=== PATIENT | female | born 1990 | race Caucasian/White ===

== ENCOUNTER 2017-09-02 20:32 | Emergency (ER) | payer OTHER ==
[2017-09-02 20:40] VITALS: BP 174/84; PULSE 71; RESP 18; TEMP 97.9; O2SAT 100
--- NOTE | 2017-09-02 21:21 | RADRPT ---
EXAM DATE/TIME: 09/02/2017 20:56 [facility] COMPARISON: No previous studies available for comparison. INDICATIONS : Cephalgia with dizziness. RADIATION DOSE: 38.57 CTDIvol (mGy) MEDICAL HISTORY : Hypertension. SURGICAL HISTORY : None. ENCOUNTER: Initial ACUITY: 1 day PAIN SCALE: 4/10 LOCATION: cranial TECHNIQUE: Multiple contiguous axial images were obtained of the head. Using automated exposure control and adj ustment of the mA and/or kV according to patient size, radiation dose was kept as low as reasonably a chievable to obtain optimal diagnostic quality images. DICOM format image data is available electro nically for review and comparison. FINDINGS: CEREBRUM: The ventricles are normal for age. No evidence of midline shift, mass lesion, hemorrhage or acute in farction. No extra-axial fluid collections are seen. POSTERIOR FOSSA: The cerebellum and brainstem are intact. The 4th ventricle is midline. The cerebellopontine angle i s unremarkable. EXTRACRANIAL: The visualized portion of the orbits is intact. SKULL: The calvaria is intact. No evidence of skull fracture. CONCLUSION: 1. No acute intracranial abnormality. Ishan New MD on September 02, 2017 at 21:18 Board Certified Radiologist. This report was verified electronically.
[2017-09-02] MEDS ORDERED: MECL-62 PO (23:39)
[2017-09-02] MEDS ORDERED: CLON.5 PO (23:39)
[2017-09-02] MEDS ORDERED: CIPR500T2 PO (23:45)
[2017-09-02] MEDS ORDERED: SODIUM CHLORIDE 0.9% FLUSH 10 ML FLUSH IV FLUSH PRN (23:45)
--- NOTE | 2017-09-02 23:52 | PD ---
HPI Chief Complaint: Dizziness Time Seen by Provider: 23:36 Travel History International Travel<30 days: No Contact w/Intl Traveler<30days: No Traveled to known affect area: No History of Present Illness HPI 27-year-old female complains of dizziness, blurred vision and abdominal pain. Patient states that the symptoms started about 6 weeks ago. Patient states that she has sensation of near fainting, dizziness, seeing floaters in front of her eyes. Patient denies any headache. Patient denies any visual change. Patient denies any neck pain. Patient denies any coughing congestion. Patient states that she has diffuse abdominal cramping for the past 6 weeks. Patient planes of low back pain also. Patient denies any nausea vomiting diarrhea. Patient complains of poor appetite. Patient denies any fever chills. Patient denies any dysuria frequency. Patient denies any vaginal discharge or bleeding. Patient was seen by personal physician and thyroid test was normal. Patient was put on amlodipine for elevated blood pressure. Amlodipine was stopped about 10 days ago after patient complained of persistent dizziness. Patient was put on Cipro 2 days ago for possible upper respiratory sinus infection. Patient on the diet and experienced weight loss recently. PFSH Past Medical History Anxiety: Yes Hypertension: Yes Tetanus Vaccination: Unknown Influenza Vaccination: Yes ?: Not LMP: 08/27/17 Ovarian Cysts: Yes (RIGHT OVARIAN CYST DRAINING 08/2015) Social History Alcohol Use: No Tobacco Use: No Substance Use: No Allergies-Medications (Allergen,Severity, Reaction): Coded Allergies: amoxicillin (Verified Allergy, Unknown, 09/02/17) Reported Meds & Prescriptions Reported Meds & Active Scripts Active Reported Ciprofloxacin (Ciprofloxacin HCl) 500 Mg Tab 500 Mg PO BID 7 Days Klonopin (Clonazepam) 0.5 Mg Tab 0.5 Mg PO DAILY Meclizine (Meclizine HCl) 25 Mg Tab 25 Mg PO DIRECTED PRN Review of Systems General / Constitutional: No: Fever Eyes: No: Visual changes HENT: Positive: Lightheadedness, No: Headaches Cardiovascular: No: Chest Pain or Discomfort Respiratory: No: Shortness of Breath Gastrointestinal: Positive: Abdominal Pain Genitourinary: No: Dysuria Musculoskeletal: No: Pain Skin: No Rash Neurologic: No: Weakness Psychiatric: No: Depression Endocrine: No: Polydipsia Hematologic/Lymphatic: No: Easy Bruising Physical Exam Narrative GENERAL: Well-nourished, well-developed patient. SKIN: Focused skin assessment warm/dry. HEAD: Normocephalic. EYES: No scleral icterus. No injection or drainage. Pupils 2 mm equal reactive. NECK: Supple, trachea midline. No JVD or lymphadenopathy. No meningismus CARDIOVASCULAR: Regular rate and rhythm without murmurs, gallops, or rubs. RESPIRATORY: Breath sounds equal bilaterally. No accessory muscle use. GASTROINTESTINAL: Abdomen soft, nondistended. Patient has mild diffuse tenderness over the abdomen. No rebound tenderness. No mass. MUSCULOSKELETAL: No cyanosis, or edema. BACK: Nontender without obvious deformity. No CVA tenderness. Neurologic exam: Patient is awake alert oriented 3. No obvious focal neurological deficit. Data Data Last Documented VS Vital Signs Date Time Temp Pulse Resp B/P (MAP) Pulse Ox O2 Delivery O2 Flow Rate FiO2 09/02/17 20:40 97.9 71 18 174/84 (114) [address] Brain W/O Iv Contrast(Rout) (09/02/17 ) Complete Blood Count With Diff (09/02/17 23:45) Comprehensive Metabolic Panel (09/02/17 23:45) Lipase (09/02/17 23:45) Urinalysis - C+S If Indicated (09/02/17 23:45) Ct Abd/Pel W Iv Contrast(Rout) (09/02/17 23:45) Iv Access Insert/Monitor (09/02/17 23:45) Ecg Monitoring (09/02/17 23:45) Oximetry (09/02/17 23:45) Sodium Chloride 0.9% Flush (Ns Flush) (09/02/17 23:45) Ed Urine Pregnancytest Poc (09/02/17 23:45) Labs Laboratory Tests Test 09/03/17 00:00 09/03/17 00:05 White Blood Count 9.2 TH/MM3 Red Blood Count 4.37 MIL/MM3 Hemoglobin 13.4 GM/DL Hematocrit 38.2 % Mean Corpuscular Volume 87.5 FL Mean Corpuscular Hemoglobin 30.7 PG Mean Corpuscular Hemoglobin Concent 35.1 % Red Cell Distribution Width 12.8 % Platelet Count 288 TH/MM3 Mean Platelet Volume 10.2 FL Neutrophils (%) (Auto) 70.5 % Lymphocytes (%) (Auto) 19.7 % Monocytes (%) (Auto) 2.9 % Eosinophils (%) (Auto) 4.0 % Basophils (%) (Auto) 2.9 % Neutrophils # (Auto) 6.5 TH/MM3 Lymphocytes # (Auto) 1.8 TH/MM3 Monocytes # (Auto) 0.3 TH/MM3 Eosinophils # (Auto) 0.4 TH/MM3 Basophils # (Auto) 0.3 TH/MM3 CBC Comment DIFF FINAL Differential Comment Blood Urea Nitrogen 16 MG/DL Creatinine 0.73 MG/DL Random Glucose 98 MG/DL Total Protein 7.8 GM/DL Albumin 4.2 GM/DL Calcium Level 9.6 MG/DL Alkaline Phosphatase 73 U/L Aspartate Amino Transf (AST/SGOT) 31 U/L Alanine Aminotransferase (ALT/SGPT) 89 U/L Total Bilirubin 0.2 MG/DL Sodium Level 140 MEQ/L Potassium Level 3.7 MEQ/L Chloride Level 104 MEQ/L Carbon Dioxide Level 25.7 MEQ/L Anion Gap 10 MEQ/L Estimat Glomerular Filtration Rate 94 ML/MIN Lipase 135 U/L Urine Color LIGHT-YELLOW Urine Turbidity CLEAR Urine pH 5.5 Urine Specific [place] 1.011 Urine Protein NEG mg/dL Urine Glucose (UA) NEG mg/dL Urine Ketones NEG mg/dL Urine Occult Blood SMALL Urine Nitrite NEG Urine Bilirubin NEG Urine Urobilinogen LESS THAN 2.0 MG/DL Urine Leukocyte Esterase NEG Urine RBC 4 /hpf Urine WBC 1 /hpf Urine Squamous Epithelial Cells 1 /hpf Urine Mucus FEW /lpf Microscopic Urinalysis Comment CULT NOT INDICATED MDM Medical Decision Making Medical Screen Exam Complete: Yes Emergency Medical Condition: Yes Interpretation(s) 1:02 AM. CBC within normal limits. CMP within normal limits. UA is negative. Differential Diagnosis Differential diagnosis including viral syndrome, vertigo, gastritis, PUD, pancreatitis, cholecystitis, colitis, UTI, pyelonephritis nephrolithiasis. Narrative Course 27-year-old female with dizziness and abdominal pain. Junior Hancock MD Sep 02, 2017 23:52
[2017-09-03 00:25] LABS: BILIRUBIN, URINE NEG (NEG); BLOOD, URINE SMALL (NEG); GLUCOSE,URINE NEG (NEG); KETONE, URINE NEG (NEG); MUCUS URINE FEW /lpf (OCC); NITRITE,URINE NEG (NEG); PH, URINE 5.5 (5.0-8.5); SQUAMOUS EPITHELIAL CELL URINE 1 /hpf (0-5); URINE COLOR LIGHT-YELLOW (YELLW/STRAW); URINE LEUKOCYTE ESTERASE NEG (NEG)
[2017-09-03 00:25] LABS: AUTOMATED NEUTROPHIL # 6.5 TH/MM3 (1.8-7.7); BASOPHIL # 0.3 TH/MM3 (0-0.2); BASOPHIL % 2.9 % (0.0-2.0); EOSINOPHIL # 0.4 TH/MM3 (0-0.4); HEMATOCRIT 38.2 % (35.0-46.0); HEMOGLOBIN 13.4 GM/DL (11.6-15.3); LYMPH % 19.7 % (9.0-44.0); LYMPHOCYTE # 1.8 TH/MM3 (1.0-4.8); MEAN CELL VOLUME 87.5 FL (80.0-100.0); MEAN CORPUSCULAR HEMOGLOBIN 30.7 PG (27.0-34.0); MEAN CORPUSCULAR HGB CONC 35.1 % (32.0-36.0); MEAN PLATELET VOLUME 10.2 FL (7.0-11.0); MONO % 2.9 % (0.0-8.0); MONOCYTE # 0.3 TH/MM3 (0-0.9); NEUT % 70.5 % (16.0-70.0); PLATELET COUNT 288 TH/MM3 (150-450); RED BLOOD COUNT 4.37 MIL/MM3 (4.00-5.30); RED CELL DISTRIBUTION WIDTH 12.8 % (11.6-17.2); WHITE BLOOD COUNT 9.2 TH/MM3 (4.0-11.0)
[2017-09-03 00:43] LABS: ALBUMIN 4.2 GM/DL (3.4-5.0); AST (GOT) 31 U/L (15-37); BICARBONATE 25.7 MEQ/L (21.0-32.0); BLOOD UREA NITROGEN 16 MG/DL (7-18); CALCIUM 9.6 MG/DL (8.5-10.1); CHLORIDE 104 MEQ/L (98-107); CREATININE 0.73 MG/DL (0.50-1.00); GLOMERULAR FILTRATION RATE 94 ML/MIN (>89); GLUCOSE,RANDOM 98 MG/DL (74-106); SODIUM (NA) 140 MEQ/L (136-145)
[2017-09-03 00:45] LABS: ALT (GPT) 89 U/L (10-53)
[2017-09-03 00:47] LABS: ALKALINE PHOSPHATASE 73 U/L (45-117); TOTAL BILIRUBIN ADULT 0.2 MG/DL (0.2-1.0); TOTAL PROTEIN 7.8 GM/DL (6.4-8.2)
[2017-09-03] MEDS ORDERED: IOHEXOL 350 MG/ML 10 ML VIAL (for RAD DIAG) IVCONTRAST ONE (01:29)
--- NOTE | 2017-09-03 01:36 | RADRPT ---
EXAM DATE/TIME: 09/03/2017 01:16 [facility] COMPARISON: No previous studies available for comparison. INDICATIONS : Diffuse abdominal pain. IV CONTRAST: 100 cc Omnipaque 350 (iohexol) IV ORAL CONTRAST: No oral contrast ingested. RADIATION DOSE: 16.62 CTDIvol (mGy) MEDICAL HISTORY : Hypertension. Ovarian cysts. SURGICAL HISTORY : None. ENCOUNTER: Initial ACUITY: 1 month PAIN SCALE: 8/10 LOCATION: Abdomen. TECHNIQUE: Volumetric scanning of the abdomen and pelvis was performed. Using automated exposure control and ad justment of the mA and/or kV according to patient size, radiation dose was kept as low as reasonably achievable to obtain optimal diagnostic quality images. DICOM format image data is available electro nically for review and comparison. FINDINGS: LOWER LUNGS: The visualized lower lungs are clear. LIVER: Homogeneous density without lesion. There is no dilation of the biliary tree. No calcified gallston es. SPLEEN: Normal size without lesion. PANCREAS: Within normal limits. KIDNEYS: Normal in size and shape. There is no mass, stone or hydronephrosis. ADRENAL GLANDS: Within normal limits. VASCULAR: There is no aortic aneurysm. BOWEL/MESENTERY: The stomach, small bowel, and colon demonstrate no acute abnormality. Mild amount of stool throughou t right colon. There is no free intraperitoneal air or fluid. ABDOMINAL WALL: Within normal limits. RETROPERITONEUM: There is no lymphadenopathy. BLADDER: No wall thickening or mass. REPRODUCTIVE: Within normal limits. INGUINAL: There is no lymphadenopathy or hernia. MUSCULOSKELETAL: Within normal limits for patient age. CONCLUSION: 1. Negative CT abdomen/pelvis with contrast. Mathew Barcenas MD on September 03, 2017 at 1:33 Board Certified Radiologist. This report was verified electronically.
--- NOTE | 2017-09-03 02:12 | PD ---
Physical Exam Date Seen by Provider: Sep 03, 2017 Time Seen by Provider: 02:09 Data Data Last Documented VS Vital Signs Date Time Temp Pulse Resp B/P (MAP) Pulse Ox O2 Delivery O2 Flow Rate FiO2 09/02/17 20:40 97.9 71 18 174/84 (114) [address] Brain W/O Iv Contrast(Rout) (09/02/17 ) Complete Blood Count With Diff (09/02/17 23:45) Comprehensive Metabolic Panel (09/02/17 23:45) Lipase (09/02/17 23:45) Urinalysis - C+S If Indicated (09/02/17 23:45) Ct Abd/Pel W Iv Contrast(Rout) (09/02/17 23:45) Iv Access Insert/Monitor (09/02/17 23:45) Ecg Monitoring (09/02/17 23:45) Oximetry (09/02/17 23:45) Sodium Chloride 0.9% Flush (Ns Flush) (09/02/17 23:45) Ed Urine Pregnancytest Poc (09/02/17 23:45) Iohexol 350 Inj (Omnipaque 350 Inj) (09/03/17 01:29) Labs Laboratory Tests Test 09/03/17 00:00 09/03/17 00:05 White Blood Count 9.2 TH/MM3 Red Blood Count 4.37 MIL/MM3 Hemoglobin 13.4 GM/DL Hematocrit 38.2 % Mean Corpuscular Volume 87.5 FL Mean Corpuscular Hemoglobin 30.7 PG Mean Corpuscular Hemoglobin Concent 35.1 % Red Cell Distribution Width 12.8 % Platelet Count 288 TH/MM3 Mean Platelet Volume 10.2 FL Neutrophils (%) (Auto) 70.5 % Lymphocytes (%) (Auto) 19.7 % Monocytes (%) (Auto) 2.9 % Eosinophils (%) (Auto) 4.0 % Basophils (%) (Auto) 2.9 % Neutrophils # (Auto) 6.5 TH/MM3 Lymphocytes # (Auto) 1.8 TH/MM3 Monocytes # (Auto) 0.3 TH/MM3 Eosinophils # (Auto) 0.4 TH/MM3 Basophils # (Auto) 0.3 TH/MM3 CBC Comment DIFF FINAL Differential Comment Blood Urea Nitrogen 16 MG/DL Creatinine 0.73 MG/DL Random Glucose 98 MG/DL Total Protein 7.8 GM/DL Albumin 4.2 GM/DL Calcium Level 9.6 MG/DL Alkaline Phosphatase 73 U/L Aspartate Amino Transf (AST/SGOT) 31 U/L Alanine Aminotransferase (ALT/SGPT) 89 U/L Total Bilirubin 0.2 MG/DL Sodium Level 140 MEQ/L Potassium Level 3.7 MEQ/L Chloride Level 104 MEQ/L Carbon Dioxide Level 25.7 MEQ/L Anion Gap 10 MEQ/L Estimat Glomerular Filtration Rate 94 ML/MIN Lipase 135 U/L Urine Color LIGHT-YELLOW Urine Turbidity CLEAR Urine pH 5.5 Urine Specific [place] 1.011 Urine Protein NEG mg/dL Urine Glucose (UA) NEG mg/dL Urine Ketones NEG mg/dL Urine Occult Blood SMALL Urine Nitrite NEG Urine Bilirubin NEG Urine Urobilinogen LESS THAN 2.0 MG/DL Urine Leukocyte Esterase NEG Urine RBC 4 /hpf Urine WBC 1 /hpf Urine Squamous Epithelial Cells 1 /hpf Urine Mucus FEW /lpf Microscopic Urinalysis Comment CULT NOT INDICATED MDM Medical Record Reviewed: Yes Supervised Visit with ALICE: Yes Interpretation(s) Laboratory Tests Test 09/03/17 00:00 09/03/17 00:05 White Blood Count 9.2 TH/MM3 Red Blood Count 4.37 MIL/MM3 Hemoglobin 13.4 GM/DL Hematocrit 38.2 % Mean Corpuscular Volume 87.5 FL Mean Corpuscular Hemoglobin 30.7 PG Mean Corpuscular Hemoglobin Concent 35.1 % Red Cell Distribution Width 12.8 % Platelet Count 288 TH/MM3 Mean Platelet Volume 10.2 FL Neutrophils (%) (Auto) 70.5 % Lymphocytes (%) (Auto) 19.7 % Monocytes (%) (Auto) 2.9 % Eosinophils (%) (Auto) 4.0 % Basophils (%) (Auto) 2.9 % Neutrophils # (Auto) 6.5 TH/MM3 Lymphocytes # (Auto) 1.8 TH/MM3 Monocytes # (Auto) 0.3 TH/MM3 Eosinophils # (Auto) 0.4 TH/MM3 Basophils # (Auto) 0.3 TH/MM3 CBC Comment DIFF FINAL Differential Comment Blood Urea Nitrogen 16 MG/DL Creatinine 0.73 MG/DL Random Glucose 98 MG/DL Total Protein 7.8 GM/DL Albumin 4.2 GM/DL Calcium Level 9.6 MG/DL Alkaline Phosphatase 73 U/L Aspartate Amino Transf (AST/SGOT) 31 U/L Alanine Aminotransferase (ALT/SGPT) 89 U/L Total Bilirubin 0.2 MG/DL Sodium Level 140 MEQ/L Potassium Level 3.7 MEQ/L Chloride Level 104 MEQ/L Carbon Dioxide Level 25.7 MEQ/L Anion Gap 10 MEQ/L Estimat Glomerular Filtration Rate 94 ML/MIN Lipase 135 U/L Urine Color LIGHT-YELLOW Urine Turbidity CLEAR Urine pH 5.5 Urine Specific [place] 1.011 Urine Protein NEG mg/dL Urine Glucose (UA) NEG mg/dL Urine Ketones NEG mg/dL Urine Occult Blood SMALL Urine Nitrite NEG Urine Bilirubin NEG Urine Urobilinogen LESS THAN 2.0 MG/DL Urine Leukocyte Esterase NEG Urine RBC 4 /hpf Urine WBC 1 /hpf Urine Squamous Epithelial Cells 1 /hpf Urine Mucus FEW /lpf Microscopic Urinalysis Comment CULT NOT INDICATED Last 24 hours Impressions Abdomen/Pelvis CT 09/02/17 2345 Signed Impressions: Service Date/Time: August 01:16 - CONCLUSION: 1. Negative CT abdomen/pelvis with contrast. Mathew Barcenas MD Head CT 09/02/17 0000 Signed Impressions: Service Date/Time: Saturday, September 02, 2017 20:56 - CONCLUSION: 1. No acute intracranial abnormality. Ishan New MD Differential Diagnosis . Narrative Course The patient's CAT scan of the head and abdomen are negative. The patient has no evidence of sinus disease or intra-abdominal process. I have discussed the case with Dr. Hancock who feels that this is most likely dizziness and headache associated with viral syndrome and hypertension. Patient's antibiotic s should be discontinued. I will write a prescription for lisinopril 5 mg daily. she can be treated symptomatically. This is #1 cephalgia, #2 viral syndrome, #3 hypertension Diagnosis Primary Impression: Cephalgia Additional Impressions: Viral syndrome Hypertension Patient Instructions: General Instructions Additional Instruction: Rest. Increase fluids. Stop Cipro. Antihistamine for dizziness. Lisinopril for blood pressure. Follow-up with her primary care doctor next 3-5 days. Return to the ER for emergencies. Med/Other Pt SpecificInfo: Prescription(s) given Disposition: DISCHARGE HOME Condition: Stable Ishan Holland Sep 03, 2017 02:12
[2017-09-03] MEDS ORDERED: LISI-519 PO (02:14)
[2017-09-03] MEDS ORDERED: MECL-62 PO (02:14)
== END 2017-09-03 02:37 | disposition home or self-care (01) ==
LOC: NED 20:32 → NEPD 09-03 02:37
DX: R51 Headache (principal); B34.9 Viral infection, unspecified; R42 Dizziness and giddiness; I10 Essential (primary) hypertension
CPT/HCPCS: 70450; 74177; 80053; 81001; 83690; 84703; 85025; 99284; Q9967

== ENCOUNTER 2017-09-07 03:36 | Emergency (ER) | payer OTHER ==
[~2017-09-07 03:36] MED LIST: CIPR500T2 PO; CLON.5 PO; LISI-519 PO; MECL-62 PO
[2017-09-07 03:54] VITALS: BP 134/61; PULSE 67; RESP 16; TEMP 98.6; O2SAT 96
--- NOTE | 2017-09-07 04:19 | PD ---
HPI Chief Complaint: Psychiatric Symptoms Time Seen by Provider: 03:55 Travel History International Travel<30 days: No Contact w/Intl Traveler<30days: No Traveled to known affect area: No History of Present Illness HPI 27-year-old white female presents to emergency department as a transfer from [facility]. She had been medically cleared by the ER doctor and sent to the ER here at [facility] to be seen by the psychiatrist under her Calloway act. The patient had made statements to the ER physician that she is feeling depressed regarding her medical conditions and that she has contemplated driving her car [place] the bridge. The patient here states that she is really not suicidal. She is just tired of feeling sick. She went to the ER because she had a syncopal event. The patient is been sick now for nearly 2 months. She's had intermittent dizziness, palpitations, headaches and general malaise. She has been seen by her primary care doctor on multiple occasions. She's been here at [facility] as well. She's been seen by jogger operator and is allegedly being referred to neurology. The patient states that she is not truly suicidal or homicidal. She is just upset with her medical condition. She denies any toxic ingestions. No drugs. PFSH Past Medical History Anxiety: Yes Hypertension: Yes Tetanus Vaccination: < 5 Years ?: Not : 2 Para: 2 Ovarian Cysts: Yes (RIGHT OVARIAN CYST DRAINING 08/2015) Past Surgical History Surgical History: No Previous Surgery Social History Alcohol Use: No Tobacco Use: No Substance Use: No Allergies-Medications (Allergen,Severity, Reaction): Coded Allergies: amoxicillin (Verified Allergy, Unknown, 09/02/17) Reported Meds & Prescriptions Reported Meds & Active Scripts Active Meclizine (Meclizine HCl) 25 Mg Tab 25 Mg PO Q6HR PRN 7 Days Reported Klonopin (Clonazepam) 0.5 Mg Tab 0.5 Mg PO DAILY Review of Systems Except as stated in HPI: all other systems reviewed are Neg General / Constitutional: No: Fever, Chills Eyes: No: Blurred Vision, Pain HENT: Positive: Headaches, No: Neck Pain Cardiovascular: Positive: Palpitations, Irregular Rhythm, Tachycardia, No: Chest Pain or Discomfort Respiratory: Positive: Shortness of Breath, No: Cough, Wheezing Gastrointestinal: No: Nausea, Vomiting Genitourinary: No: Frequency, Dysuria Psychiatric: Positive: Depression, Mood Disorder, No: Anxiety, Suicidal Ideations, Disorder of Thought, Substance Abuse, Homicidal Ideation Physical Exam Narrative GENERAL: Well-nourished, well-developed patient. SKIN: Warm and dry. HEAD: Normocephalic and atraumatic. EYES: No scleral icterus. No injection or drainage. ENT: No nasal drainage noted. Mucous membranes pink. Airway patent. NECK: Supple, trachea midline. Moves head freely without obvious discomfort. CARDIOVASCULAR: Regular rate and rhythm without murmurs, gallops, or rubs. RESPIRATORY: Breath sounds equal bilaterally. No accessory muscle use. GASTROINTESTINAL: Abdomen soft, non-tender, nondistended. EXTREMITIES: No cyanosis or edema. BACK: Nontender without obvious deformity. No CVA tenderness. NEURO: Patient is alert and oriented. no sensorimotor deficits. Nonfocal. Normal speech. PSYCH: No delusions. No auditory or visual hallucinations. Data Data Last Documented VS Vital Signs Date Time Temp Pulse Resp B/P (MAP) Pulse Ox O2 Delivery O2 Flow Rate FiO2 09/07/17 03:54 98.6 67 16 134/61 (85) 96 MDM Medical Decision Making Medical Screen Exam Complete: Yes Emergency Medical Condition: Yes Medical Record Reviewed: Yes Interpretation(s) I review the patient's laboratory testing from [facility]. Differential Diagnosis MDM: High Differential diagnoses: Schizophrenia, schizoaffective disorder, bipolar, anxiety, depression, adjustment reaction, mood disorder NOS, ODD, depressive disorder NOS, dementia, dementia with agitation, psychosis NOS, substance induced mood disorder, DMDD, Asperger syndrome, infection,electrolyte abnormality, malingering. Mental health screening discussed with the patient. Psychiatric screen ordered. Narrative Course This is a patient who had been cleared earlier in the evening by the doctor at [facility] This is medical clearance for psychiatric admission Diagnosis Primary Impression: Medical clearance for psychiatric admission Patient Instructions: General Instructions Condition: Stable Ishan Holland Sep 07, 2017 04:19
[2017-09-07 10:48] VITALS: BP 142/77; PULSE 67; RESP 18; TEMP 98.3; O2SAT 100
--- NOTE | 2017-09-07 11:19 | PD ---
Physical Exam Time Seen by Provider: 11:[address] Villagomez has evaluated patient, lifted the Calloway act and cleared the patient for discharge. Data Data Last Documented VS Vital Signs Date Time Temp Pulse Resp B/P (MAP) Pulse Ox O2 Delivery O2 Flow Rate FiO2 09/07/17 10:48 98.3 67 18 142/77 (98) 100 Room Air Orders Orders Psych Screen (09/07/17 04:26) Diet Regular Basic (09/07/17 Breakfast) MDM Supervised Visit with ALICE: No Narrative Course Dr. Villagomez has evaluated patient, lifted the Calloway act and cleared the patient for discharge. Patient contracts safety. Denies suicidal or homicidal ideations. Patient will be provided community resource packet to [facility] for follow-up. Has friends and family for support. Patient was medically cleared by alternate provider prior to psych screening. Patient has been evaluated by psychiatry and and is now cleared for discharge. Diagnosis Primary Impression: Depression Qualified Codes: F32.9 - Major depressive disorder, single episode, unspecified Referrals: [facility] (Out patient) [facility] Primary Care Physician Psychiatrist Julio [facility] Patient Instructions: General Instructions Additional Instruction: Contract safety to your self and others Follow-up with psychiatry Follow-up with primary care provider Follow-up with [facility] Return to the emergency department immediately with worsening of symptoms Med/Other Pt SpecificInfo: No Change to Meds, No Meds Exist/No RX given Disposition: 01 DISCHARGE HOME Condition: Stable Kisha Jennings Sep 07, 2017 11:19
--- NOTE | 2017-09-07 15:07 | PD.PSY.CON ---
Provisional Diagnosis Admission Date [place]. Unspecified anxiety History of Present Illness Service Psychiatry Consult Requested By ER Reason for Consult Anxiety Primary Care Physician Yojana Mclaughlin MD HPI Patient was seen this morning at 10:30 AM The patient is 27-year-old woman, domiciled with her boyfriend in [place], unemployed, mother of 3 kids, without no previous psychiatric history , no prepsychotic hospitalizations, no previous suicide attempts, medical history of migraine hypertension, who presents to emergency department as a transfer from [facility]. She had been medically cleared by the ER doctor and sent to the ER here at [facility] to be seen by the psychiatrist under her Calloway act. The patient had made statements to the ER physician that she is feeling depressed regarding her medical conditions and that she has contemplated driving her car [place] the bridge. The patient here states that she is really not suicidal "I have to many reasons to look for, including my 3 kids and my family". She is just tired of feeling sick. She went to the ER because she had a syncopal event. The patient is been sick now for nearly 2 months. Patient described discrete episode of feeling dizzy, with impending doom, tachycardia, and sweating. She has been seen by her primary care doctor on multiple occasions. She's been here at [facility] as well. She's been seen by district home economics agent and is allegedly being referred to neurology. The patient states that she is not truly suicidal or homicidal. She is just upset with her medical condition. She denies any toxic ingestions. No drugs. Review of Systems Constitutional: DENIES: Diaphoretic episodes, Fatigue, Fever, Weight gain, Weight loss, Chills, Dizziness, Change in appetite, Night Sweats Endocrine: DENIES: Abnorml menstrual pattern, Heat/cold intolerance, Polydipsia , Polyuria, Polyphagia Eyes: DENIES: Blurred vision, Diplopia, Eye inflammation, Eye pain, Vision loss , Photosensitivity, Double Vision Ears, nose, mouth, throat: DENIES: Tinnitus, Hearing loss, Vertigo, Nasal discharge, Oral lesions, Throat pain, Hoarseness, Ear Pain, Running Nose, Epistaxis, Sinus Pain, Toothache, Odynophagia Respiratory: DENIES: Apneas, Cough, Snoring, Wheezing, Hemoptysis, Sputum production, Shortness of breath Cardiovascular: DENIES: Chest pain, Palpitations, Syncope, Dyspnea on Exertion , PND, Lower Extremity Edema, Orthopnea, Claudication Gastrointestinal: DENIES: Abdominal pain, Black stools, Bloody stools, Constipation, Diarrhea, Nausea, Vomiting, Difficulty Swallowing, Anorexia Genitourinary: DENIES: Abnormal vaginal bleeding, Dysmenorrhea, Dyspareunia, Sexual dysfunction, Urinary frequency, Urinary incontinence, Urgency, Hematuria , Dysuria, Nocturia, Vaginal discharge Musculoskeletal: DENIES: Joint pain, Muscle aches, Stiffness, Joint Swelling, Back pain, Neck pain Integumentary: DENIES: Abnormal pigmentation, Pruritus, Rash, Nail changes, Breast masses, Breast skin changes, Nipple discharge Hematologic/lymphatic: DENIES: Bruising, Lymphadenopathy Immunologic/allergic: DENIES: Eczema, Urticaria Neurologic: DENIES: Abnormal gait, Headache, Localized weakness, Paresthesias, Seizures, Speech Problems, Tremor, Poor Balance Psychiatric: COMPLAINS OF: Anxiety, DENIES: Confusion, Mood changes, Depression , Hallucinations, Agitation, Suicidal Ideation, Homicidal Ideation, Delusions Past Family Social History Coded Allergies: amoxicillin (Verified Allergy, Unknown, 09/02/17) Active Scripts Meclizine (Meclizine) 25 Mg Tab, 25 MG PO Q6HR Y for VERTIGO for 7 Days, TAB 0 Refills Prov:Junior Hancock MD 09/03/17 Reported Medications Clonazepam (Klonopin) 0.5 Mg Tab, 0.5 MG PO DAILY, #60 TAB 0 Refills 09/02/17 Discontinued Reported Medications Ciprofloxacin (Ciprofloxacin) 500 Mg Tab, 500 MG PO BID for Infection for 7 Days , #14 TAB 0 Refills 09/02/17 Discontinued Scripts Lisinopril (Lisinopril) 5 Mg Tab, 5 MG PO DAILY for Blood Pressure Management, # 30 TAB 0 Refills Prov:Junior Hancock MD 09/03/17 Family Psych History No family psychiatric history Social History Patient was born raised in [facility], she lives in [place] with her , unemployed, she has 3 kids, her highest level of education is some college Patient's Strengths (min. 2) Family support Physical Exam Vital Signs Vital Signs Date Time Temp Pulse Resp B/P (MAP) Pulse Ox O2 Delivery O2 Flow Rate FiO2 09/07/17 11:56 09/07/17 10:48 98.3 67 18 100 Room Air I/O 09/07/17 09/07/17 09/08/17 08:00 16:00 00:00 Intake Total 480 ml Balance 480 ml Mental Status Examination Appearance: Appropriate Consciousness: Alert Orientation: x4 Motor Activity: Normal gait Speech: Unremarkable Language: Adequate Fund of Knowledge: Adequate Attention and Concentration: Adequate Memory: Unremarkable Mood: Appropriate Affect: Appropriate Thought Process & Associations: Intact Thought Content: Appropriate Hallucination Type: None Delusion Type: None Suicidal Ideation: No Suicidal Plan: No Suicidal Intention: No Homicidal Ideation: No Homicidal Plan: No Homicidal Intention: No Insight: Adequate Judgment: Adequate Assessment & Plan Problem List: (1) Anxiety disorder, unspecified ICD Codes: F41.9 - Anxiety disorder, unspecified Assessment & Plan: On psychiatric evaluation today the patient does not present evidence of depression, erin and psychosis. The patient denies suicidal or homicidal ideation, she denies visual and auditory hallucinations. The patient does report that she has been having episodic anxiety, sensation of fainting, palpitation and sweating and also impending doom. She has been presented with symptoms for about 2 months. He has had multiple medical test and they are all negative. Patient could be having panic attacks. She already has an appointment with a psychiatrist next week. She does not meet criteria for involuntary psychiatric admission at this moment. Calloway act will be lifted Assessment & Plan Estimated LOS: Kimo Cotton MD Sep 07, 2017 15:07
== END 2017-09-07 12:03 | disposition home or self-care (01) ==
LOC: NEPD 03:36
DX: F32.9 Major depressive disorder, single episode, unspecified (principal)
CPT/HCPCS: 99284

== ENCOUNTER 2017-09-14 10:12 | Emergency (ER) | payer OTHER ==
[~2017-09-14] VITALS: Ht 162.6 cm; Wt 122.0 kg
[~2017-09-14 10:12] MED LIST changes: -CIPR500T2 PO; -LISI-519 PO
[2017-09-14 10:16] VITALS: BP 135/66; PULSE 76; RESP 16; TEMP 99; O2SAT 98
--- NOTE | 2017-09-14 11:24 | PD ---
HPI Chief Complaint: GI Complaint Time Seen by Provider: 11:19 Travel History International Travel<30 days: No Contact w/Intl Traveler<30days: No Traveled to known affect area: No History of Present Illness HPI 27-year-old female patient presents to the ER today because she states that she has had several months history of not feeling right, intermittent abdominal pain , intermittent syncopal episodes, recent episodes of diarrhea, pain around her tailbone area, for which she has been following up with primary care physician. She has recently received MRI scans of her abdomen and is supposed to see neurology next week. She states that in the last 2 days she has had mucousy stools and had some red streaks today. She called primary care and told to come to the ER for evaluation. Modifying Factors: None Associated Signs & Symptoms: Intermittent abdominal pain, syncopal episodes, diarrhea, red streaks in the stool today, mucus in the stool Risk Factors: None PFSH Past Medical History Anxiety: Yes Hypertension: Yes (no meds) Influenza Vaccination: No ?: Not LMP: 09/01/17 : 2 Para: 2 Ovarian Cysts: Yes (RIGHT OVARIAN CYST DRAINING 08/2015) Social History Alcohol Use: No Tobacco Use: No Substance Use: No Allergies-Medications (Allergen,Severity, Reaction): Coded Allergies: amoxicillin (Verified Allergy, Unknown, 09/14/17) Reported Meds & Prescriptions Reported Meds & Active Scripts Active Reported Klonopin (Clonazepam) 0.5 Mg Tab 0.5 Mg PO DAILY Review of Systems Except as stated in HPI: all other systems reviewed are Neg Physical Exam Narrative GENERAL: Well-developed young female patient currently not in acute distress. Awake and oriented 3. SKIN: Focused skin assessment warm/dry. HEAD: Atraumatic. Normocephalic. EYES: Pupils equal and round. No scleral icterus. No injection or drainage. ENT: No nasal bleeding or discharge. Mucous membranes pink and moist. NECK: Trachea midline. No JVD. Supple. CARDIOVASCULAR: Regular rate and rhythm. No murmur appreciated. RESPIRATORY: No accessory muscle use. Clear to auscultation. Breath sounds equal bilaterally. GASTROINTESTINAL: Abdomen soft, non-tender, nondistended. Hepatic and splenic margins not palpable. MUSCULOSKELETAL: No obvious deformities. No clubbing. No cyanosis. No edema. RECTAL EXAM: No masses or tenderness, stool is brown. Hemoccult negative. NEUROLOGICAL: Awake and alert. No obvious cranial nerve deficits. Motor grossly within normal limits. Normal speech. PSYCHIATRIC: Appropriate mood and affect; insight and judgment normal. Data Data Last Documented VS Vital Signs Date Time Temp Pulse Resp B/P (MAP) Pulse Ox O2 Delivery O2 Flow Rate FiO2 09/14/17 11:36 98 Room Air 09/14/17 10:16 99.0 76 16 135/66 (89) Orders Orders Complete Blood Count With Diff (09/14/17 11:21) Comprehensive Metabolic Panel (09/14/17 11:21) Lipase (09/14/17 11:21) Urinalysis - C+S If Indicated (09/14/17 11:21) Iv Access Insert/Monitor (09/14/17 11:21) Ecg Monitoring (09/14/17 11:21) Oximetry (09/14/17 11:21) Sodium Chloride 0.9% Flush (Ns Flush) (09/14/17 11:30) Ed Urine Pregnancytest Poc (09/14/17 11:21) Labs Laboratory Tests Test 09/14/17 11:30 White Blood Count 9.5 TH/MM3 Red Blood Count 4.52 MIL/MM3 Hemoglobin 13.5 GM/DL Hematocrit 39.9 % Mean Corpuscular Volume 88.3 FL Mean Corpuscular Hemoglobin 29.8 PG Mean Corpuscular Hemoglobin Concent 33.8 % Red Cell Distribution Width 12.1 % Platelet Count 266 TH/MM3 Mean Platelet Volume 9.7 FL Neutrophils (%) (Auto) 81.8 % Lymphocytes (%) (Auto) 11.6 % Monocytes (%) (Auto) 3.4 % Eosinophils (%) (Auto) 2.7 % Basophils (%) (Auto) 0.5 % Neutrophils # (Auto) 7.8 TH/MM3 Lymphocytes # (Auto) 1.1 TH/MM3 Monocytes # (Auto) 0.3 TH/MM3 Eosinophils # (Auto) 0.3 TH/MM3 Basophils # (Auto) 0.0 TH/MM3 CBC Comment DIFF FINAL Differential Comment Urine Collection Type CLEAN CATCH Urine Color YELLOW Urine Turbidity CLEAR Urine pH 6.0 Urine Specific [place] LESS/EQUAL 1.005 Urine Protein NEG mg/dL Urine Glucose (UA) NEG mg/dL Urine Ketones NEG mg/dL Urine Occult Blood MOD Urine Nitrite NEG Urine Bilirubin NEG Urine Urobilinogen 0.2 MG/DL Urine Leukocyte Esterase NEG Urine RBC 0-3 /hpf Urine Squamous Epithelial Cells 0-5 /hpf Microscopic Urinalysis Comment CULT NOT INDICATED Blood Urea Nitrogen 12 MG/DL Creatinine 0.66 MG/DL Random Glucose 94 MG/DL Total Protein 7.8 GM/DL Albumin 3.9 GM/DL Calcium Level 9.6 MG/DL Alkaline Phosphatase 64 U/L Aspartate Amino Transf (AST/SGOT) 17 U/L Alanine Aminotransferase (ALT/SGPT) 32 U/L Total Bilirubin 0.4 MG/DL Sodium Level 138 MEQ/L Potassium Level 3.9 MEQ/L Chloride Level 106 MEQ/L Carbon Dioxide Level 25.4 MEQ/L Anion Gap 7 MEQ/L Estimat Glomerular Filtration Rate 106 ML/MIN Lipase 117 U/L [facility] Medical Decision Making Medical Screen Exam Complete: Yes Emergency Medical Condition: Yes Medical Record Reviewed: Yes Interpretation(s) Laboratory Tests Test 09/14/17 11:30 Neutrophils (%) (Auto) 81.8 % (16.0-70.0) Neutrophils # (Auto) 7.8 TH/MM3 (1.8-7.7) Urine Occult Blood MOD (NEG) Differential Diagnosis Colitis versus gastroenteritis versus dehydration versus metabolic issues versus GI bleed Narrative Course Rectal exam was done, did not show any signs of masses or hemorrhoids. She is Hemoccult negative. Lab work is fairly unremarkable with a stable H&H. At this point, vital signs are stable as well my plan would be to release the patient would follow-up to primary care doctor. Return for any worsening in symptoms as needed. The plan has been discussed with her and she states understanding. HemaPrompt Point of Care Internal Pos. & Neg. Controls: Passed Fecal Specimen Occult Blood: Negative Diagnosis Primary Impression: Blood in stool Disposition: DISCHARGE HOME Condition: Stable Hank Amaya MD Sep 14, 2017 11:24
[2017-09-14] MEDS ORDERED: SODIUM CHLORIDE 0.9% FLUSH 10 ML FLUSH IV FLUSH PRN (11:30)
[2017-09-14 11:36] VITALS: O2SAT 98
[2017-09-14 11:40] LABS: AUTOMATED NEUTROPHIL # 7.8 TH/MM3 (1.8-7.7); BASOPHIL % 0.5 % (0.0-2.0); BILIRUBIN, URINE NEG (NEG); BLOOD, URINE MOD (NEG); EOSINOPHIL # 0.3 TH/MM3 (0-0.4); EOSINOPHIL % 2.7 % (0.0-4.0); GLUCOSE,URINE NEG (NEG); HEMATOCRIT 39.9 % (35.0-46.0); HEMOGLOBIN 13.5 GM/DL (11.6-15.3); KETONE, URINE NEG (NEG); LYMPH % 11.6 % (9.0-44.0); LYMPHOCYTE # 1.1 TH/MM3 (1.0-4.8); MEAN CELL VOLUME 88.3 FL (80.0-100.0); MEAN CORPUSCULAR HEMOGLOBIN 29.8 PG (27.0-34.0); MEAN CORPUSCULAR HGB CONC 33.8 % (32.0-36.0); MEAN PLATELET VOLUME 9.7 FL (7.0-11.0); MONO % 3.4 % (0.0-8.0); MONOCYTE # 0.3 TH/MM3 (0-0.9); NEUT % 81.8 % (16.0-70.0); NITRITE,URINE NEG (NEG); PLATELET COUNT 266 TH/MM3 (150-450); RED BLOOD COUNT 4.52 MIL/MM3 (4.00-5.30); RED CELL DISTRIBUTION WIDTH 12.1 % (11.6-17.2); URINE COLOR YELLOW (YELLW/STRAW); URINE LEUKOCYTE ESTERASE NEG (NEG); WHITE BLOOD COUNT 9.5 TH/MM3 (4.0-11.0)
[2017-09-14 11:54] LABS: CHLORIDE 106 MEQ/L (98-107); SODIUM (NA) 138 MEQ/L (136-145)
[2017-09-14 11:57] LABS: ALBUMIN 3.9 GM/DL (3.4-5.0); BICARBONATE 25.4 MEQ/L (21.0-32.0); CALCIUM 9.6 MG/DL (8.5-10.1)
[2017-09-14 11:58] LABS: BLOOD UREA NITROGEN 12 MG/DL (7-18); GLUCOSE,RANDOM 94 MG/DL (74-106)
[2017-09-14 12:00] LABS: ALT (GPT) 32 U/L (10-53); AST (GOT) 17 U/L (15-37); CREATININE 0.66 MG/DL (0.50-1.00); GLOMERULAR FILTRATION RATE 106 ML/MIN (>89)
[2017-09-14 12:02] LABS: RBC, URINE 0-3 /hpf (0-3); SQUAMOUS EPITHELIAL CELL URINE 0-5 /hpf (0-5); TOTAL BILIRUBIN ADULT 0.4 MG/DL (0.2-1.0); TOTAL PROTEIN 7.8 GM/DL (6.4-8.2)
[2017-09-14 12:03] LABS: ALKALINE PHOSPHATASE 64 U/L (45-117)
== END 2017-09-14 12:20 | disposition home or self-care (01) ==
LOC: PHED 10:12
DX: K92.1 Melena (principal); I10 Essential (primary) hypertension; F41.9 Anxiety disorder, unspecified
CPT/HCPCS: 80053; 81001; 83690; 84703; 85025; 99284